=== PATIENT | male | born 1945 | race Two or more races ===

== ENCOUNTER 2020-02-22 17:56 | Emergency (ER) | payer OTHER ==
[~2020-02-22] VITALS: Ht 170.2 cm; Wt 76.2 kg
[2020-02-22] MEDS ORDERED: COZAAR50 MG (18:05)
[2020-02-22] MEDS ORDERED: HYDROCHLOROTH12.5 MG (18:05)
[2020-02-22] MEDS ORDERED: METFORMIN HCL850 M1 (18:06)
[2020-02-22] MEDS ORDERED: FENOFIBRATE150 MG (18:06)
== END 2020-02-22 22:48 | disposition home or self-care (01) ==
LOC: ER 17:56
DX: E11.649 Type 2 diabetes mellitus with hypoglycemia without coma (principal); T38.3X5A Adverse effect of insulin and oral hypoglycemic [antidiabetic] drugs, initial encounter; Y92.89 Other specified places as the place of occurrence of the external cause